=== PATIENT | female | born 1985 | race Caucasian/White ===

== ENCOUNTER → 2020-08-21 | Outpatient (CLI) | payer OTHER ==
--- NOTE | 2020-08-21 14:57 | RAD ---
EXAM: Bilateral knees, standing view; left knee, 2 views. HISTORY: Pain and weakness. COMPARISON: None. FINDINGS: A frontal standing view both knees and 2 views of the left knee are obtained. There is no f racture, dislocation or subluxation. There is no joint effusion. IMPRESSION: No acute osseous finding. Electronically signed by: Catherine Burgess MD (08/21/2020 2:55 PM) [id number]
--- NOTE | 2020-08-21 14:58 | RAD ---
EXAM: Left foot, 3 views. HISTORY: Pain. COMPARISON: None. FINDINGS: 3 views of the left foot are obtained. There is no fracture, dislocation or subluxation. Th ere is a small plantar spur. IMPRESSION: No acute osseous finding. Electronically signed by: Catherine Burgess MD (08/21/2020 2:55 PM) [id number]
== END ==
LOC: RAD 14:28
PROVIDERS: ATTEND Physician Assistant
DX: M25.562 Pain in left knee (principal); M79.672 Pain in left foot
CPT/HCPCS: 73560; 73565; 73630